=== PATIENT | female | born 2005 | race African-American/Black ===

== ENCOUNTER 2024-01-09 19:35 | Inpatient (IN) | payer BC, SELFPAY ==
--- NOTE | 2024-01-09 23:04 | PC.ADMIT ---
Pt? is a 18 y/o F with reported history of major depressive disorder with psychotic features,dissociative disorder presenting to [facility] ED requesting crisis. Patient states she spoke with her mother,and mother told her you need to get help . Patient stated to her nurse that she can no longer take careof herself . When asked if she is having thoughts of self-harm, the patient pauses and then responds no.History on arrival was extremely limited as patient is not wanting to engage in conversation. Sheindicates I do not want to talk right now . Pt is enrolled in [employer], course of study psychology so I can figure out how people work . Per report Pt has a dorm room at the college but often stays with father. Prior medication trials include zyprexa (reports of weight gain), prozac and risperidone Previous reports of family history of schizophrenia, schizoaffective disorder and Bipolar Disorder Prior reports of self-harming behaviors including: cutting and suicidal attempt- intentional overdose on Nyquil at age 12.?
--- NOTE | 2024-01-09 23:28 | PCS.ADM ---
Pt? is a 18 y/o F with reported history of major depressive disorder with psychotic features, dissociative disorder presenting to [facility] ED requesting crisis. Patient states she spoke with her mother, and mother told her you need to get help . Patient stated to her nurse that she can no longer take care of herself . When asked if she is having thoughts of self-harm, the patient pauses and then responds no. History on arrival was extremely limited as patient is not wanting to engage in conversation. She indicates I do not want to talk right now . Pt is enrolled in [employer], course of study psychology so I can figure out how people work . Per report Pt has a dorm room at the college but often stays with father. Prior medication trials include zyprexa (reports of weight gain), prozac and risperidone Previous reports of family history of schizophrenia, schizoaffective disorder and Bipolar Disorder. Prior reports of self-harming behaviors including: cutting and suicidal attempt- intentional overdose on Nyquil at age 12.
[2024-01-10 08:01] VITALS: BP 105/64; PULSE 79; RESP 18; TEMP 36.3; O2SAT 99
[2024-01-10 08:48] LABS: MANUAL DIFF FLAG NO
[2024-01-10 08:52] LABS: Basophils Absolute Auto 0.1 X10*3/uL (0.0-0.2); Basophils Percent Auto 0.8 % (0-2); Eosinophils Absolute Auto 0.1 X10*3/uL (0.0-0.4); Eosinophils Percent Auto 1.5 % (0-4); Hematocrit 43.8 % (37.0-47.0); Hemoglobin 14.5 g/dl (12.0-16.0); Imm Gran Abs Auto 0.02 X10*3/uL (0.00-0.03); Imm Gran Pct Auto 0.3 % (0.0-0.4); Lymphocytes Absolute Auto 2.5 X10*3/uL (1.2-4.9); Lymphocytes Percent Auto 34.1 % (20-40); Mean Corpuscular HGB Conc 33.1 g/dl (31.0-35.0); Mean Corpuscular Hemoglobin 27.7 pg (27.0-33.0); Mean Corpuscular Volume 83.7 fL (80.0-98.0); Mean Platelet Volume 9.4 fL (9.4-12.3); Monocytes Absolute Auto 0.5 X10*3/uL (0.1-1.2); Monocytes Percent Auto 7.1 % (2-11); Neutrophils Absolute Auto 4.1 x10*3/uL (2.0-8.3); Neutrophils Percent Auto 56.2 % (45-73); Platelet Count 237 X10*3/uL (160-400); Red Blood Count 5.23 X10*6/uL (4.20-5.50); Red Cell Distribution Width 13.5 % (11.0-16.0); White Blood Count 7.3 X10*3/uL (4.8-10.8)
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
[2024-01-10 09:04] LABS: Estimated Average Glucose 103 mg/dL; Hemoglobin A1c % 5.2 % (<6.0)
[2024-01-10 09:16] LABS: Alanine Aminotransferase 12 U/L (0-31); Albumin Level 4.6 g/dL (3.5-5.0); Alkaline Phosphatase 68 U/L (39-117); Anion Gap 13 (12-20); Aspartate Amino Transferase 13 U/L (5-31); Bilirubin Direct 0.4 mg/dL (0.0-0.5); Bilirubin Total 1.2 mg/dL (0.0-1.0); Blood Urea Nitrogen 11 mg/dL (9-16); Calcium 10.6 mg/dL (8.4-10.2); Carbon Dioxide 28 mmol/L (22-29); Chloride 104 mmol/L (96-108); Cholesterol 151 mg/dL (<200); Estimated Glomerular Filt Rate > 60; Glucose Fasting 91 mg/dL (60-99); HDL Cholesterol 62 mg/dL (>40); LDL Cholesterol Calculated 78 mg/dL (<100); Potassium 4.3 mmol/L (3.3-5.1); Sodium 141 mmol/L (135-145); Total Protein 7.8 g/dL (6.5-8.0); Triglycerides 57 mg/dL (<150)
[2024-01-10 09:30] LABS: Free T4 (Free Thyroxine) 1.12 ng/dL (0.71-1.85)
[2024-01-10 09:40] LABS: Folate 7.2 ng/mL (> or = 4.0); Vitamin B12 676 pg/mL (200-900)
[2024-01-10 18:00] VITALS: BP 104/62; PULSE 74; RESP 16; TEMP 36.2; O2SAT 100
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
[2024-01-11 08:22] VITALS: BP 121/62; PULSE 96; RESP 18; TEMP 36.6; O2SAT 99
--- NOTE | 2024-01-11 08:47 | P.PNPSI_ITS ---
Subjective Subjective Date of Service: 01/11/24 Reason For Visit: Depression Diagnostics Vital Signs (24Hr): Vital Signs - 24 hr 01/10/24 18:00 01/11/24 08:22 Temperature 97.2 F 98 F Pulse Rate 74 96 Respiratory Rate 16 18 Blood Pressure 104/62 121/62 Pulse Oximetry 100 99 Oxygen Delivery Method Room Air Room Air Labs 01/10/24 08:39 01/10/24 08:39 Labs: Laboratory Results - last 48 hr 01/10/24 08:39 WBC 7.3 RBC 5.23 Hgb 14.5 Hct 43.8 MCV 83.7 MCH 27.7 MCHC 33.1 RDW 13.5 Plt Count 237 MPV 9.4 Immature Gran % (Auto) 0.3 Neut % (Auto) 56.2 Lymph % (Auto) 34.1 [place] % (Auto) 7.1 Eos % (Auto) 1.5 Baso % (Auto) 0.8 Lymph # (Auto) 2.5 [place] # (Auto) 0.5 Eos # (Auto) 0.1 Baso # (Auto) 0.1 Abs Immat Gran (auto) 0.02 Absolute Neuts (auto) 4.1 Absolute Nucleated RBC 0.000 Nucleated RBC % (auto) 0.0 Sodium 141 Potassium 4.3 Chloride 104 Carbon Dioxide 28 Anion Gap 13 BUN 11 Creatinine 0.83 Estim Creat Clear Calc TNP Estimated GFR > 60 Fasting Glucose 91 Estimat Average Glucose 103 Hemoglobin A1c % 5.2 Calcium 10.6 H Total Bilirubin 1.2 H Direct Bilirubin 0.4 AST 13 ALT 12 Alkaline Phosphatase 68 Total Protein 7.8 Albumin 4.6 Triglycerides 57 Cholesterol 151 LDL Cholesterol, Calc 78 HDL Cholesterol 62 Vitamin B12 676 Folate 7.2 TSH 0.40 Free T4 1.12 Medications Medications Current Medications Acetaminophen (Acetaminophen 325 Mg Tablet) 650 mg PO Q6H PRN PRN Reason: Headache/Pain Mild Scale (1-3) Al Hydroxide/Mg Hydroxide (Magnesium Hydrox/Alum Hydrox 30 Ml Oral.Susp) 30 ml PO Q6H PRN PRN Reason: Heartburn/Nausea Calcium Carbonate (Calcium Carbonate 750 Mg Tab.Chew) 750 mg PO Q4H PRN PRN Reason: Heartburn Hydroxyzine HCl (Hydroxyzine Hcl 25 Mg Tablet) 25 mg PO Q6H PRN PRN Reason: Anxiety Magnesium Hydroxide (Milk Of Magnesia 30 Ml Oral.Susp) 30 ml PO DAILY PRN PRN Reason: Constipation Nicotine Polacrilex (Nicotine Polacrilex 2 Mg Gum) 4 mg BUCCAL Q2H PRN PRN Reason: Nicotine Cravings Trazodone HCl (Trazodone Hcl 50 Mg Tablet) 50 mg PO BEDTIME MRX1 PRN PRN Reason: Insomnia Allergies Allergies Allergy/AdvReac Type Severity Reaction Status Date / Time Unable to Assess Allergy Verified 01/09/24 20:10 Assessment & Plan Assessment & Plan (1) Medical clearance for psychiatric admission: Status: Acute Code(s): Z00.8 - Encounter for other general examination Plan Pt is a 18-year-old female with a PMH significant for?childhood asthma, MDD with psychotic features, and dissociative disorder who is admitted to [facility] psychiatry unit for increasing depression and inability to take care of self in the community. Medical consult for admission H&P. Mood disorder Plan as per psychiatry Chest pain Intermittent, substernal, often occurs postprandial or after lying flat More likely GERD/acid reflux, less likely ACS/CAD given age Will add TUMS prn to pt's meds If symptoms return and not alleviated by TUMS can get EKG and/or trial H2 katharina or PPI Pt otherwise states she has no acute medical issues or chronic medical conditions. Thank you for allowing us to participate in the care of this patient. Signing off at this time. Please re-consult if any acute complaints or issues arise. Time Spent With Patient Time: Total time managing care of this patient today ____ minutes.
--- NOTE | 2024-01-11 10:18 | HO.PSYCHPN ---
Subjective Subjective Date of Service: 01/11/24 Reason For Visit: Depression Subjective Notes: Conditional Voluntary Interim History: Patient was seen and discussed in rounds today. Records and plans were reviewed. She continues to be guarded, visible. Not taking any medications and I talked to her at length about wanting to reconsider and we will discuss it again tomorrow. I also encouraged her to think about seeing a therapist after leaving here and she will consider that. She does want social work to contact her college about her status and she will discuss that with the social service technician. Review of Systems Review of Systems Yes all other systems are reviewed and are negative Mental Status Exam Mental Status Exam Narrative: In today's visit she is alert, oriented and pleasant. Normal speech. Little eye contact. Affect is appropriate and subdued. No SI. Moderate dysphoria to depression present. No signs of psychosis. Cognitively intact. Judgment is intact Diagnostics Vital Signs (24Hr): Vital Signs - 24 hr 01/10/24 18:00 01/11/24 08:22 Temperature 97.2 F 98 F Pulse Rate 74 96 Respiratory Rate 16 18 Blood Pressure 104/62 121/62 Pulse Oximetry 100 99 Oxygen Delivery Method Room Air Room Air Labs 01/10/24 08:39 01/10/24 08:39 Labs: Laboratory Results - last 48 hr 01/10/24 08:39 WBC 7.3 RBC 5.23 Hgb 14.5 Hct 43.8 MCV 83.7 MCH 27.7 MCHC 33.1 RDW 13.5 Plt Count 237 MPV 9.4 Immature Gran % (Auto) 0.3 Neut % (Auto) 56.2 Lymph % (Auto) 34.1 [place] % (Auto) 7.1 Eos % (Auto) 1.5 Baso % (Auto) 0.8 Lymph # (Auto) 2.5 [place] # (Auto) 0.5 Eos # (Auto) 0.1 Baso # (Auto) 0.1 Abs Immat Gran (auto) 0.02 Absolute Neuts (auto) 4.1 Absolute Nucleated RBC 0.000 Nucleated RBC % (auto) 0.0 Sodium 141 Potassium 4.3 Chloride 104 Carbon Dioxide 28 Anion Gap 13 BUN 11 Creatinine 0.83 Estim Creat Clear Calc TNP Estimated GFR > 60 Fasting Glucose 91 Estimat Average Glucose 103 Hemoglobin A1c % 5.2 Calcium 10.6 H Total Bilirubin 1.2 H Direct Bilirubin 0.4 AST 13 ALT 12 Alkaline Phosphatase 68 Total Protein 7.8 Albumin 4.6 Triglycerides 57 Cholesterol 151 LDL Cholesterol, Calc 78 HDL Cholesterol 62 Vitamin B12 676 Folate 7.2 TSH 0.40 Free T4 1.12 Medications Medications Current Medications Acetaminophen (Acetaminophen 325 Mg Tablet) 650 mg PO Q6H PRN PRN Reason: Headache/Pain Mild Scale (1-3) Al Hydroxide/Mg Hydroxide (Magnesium Hydrox/Alum Hydrox 30 Ml Oral.Susp) 30 ml PO Q6H PRN PRN Reason: Heartburn/Nausea Calcium Carbonate (Calcium Carbonate 750 Mg Tab.Chew) 750 mg PO Q4H PRN PRN Reason: Heartburn Hydroxyzine HCl (Hydroxyzine Hcl 25 Mg Tablet) 25 mg PO Q6H PRN PRN Reason: Anxiety Magnesium Hydroxide (Milk Of Magnesia 30 Ml Oral.Susp) 30 ml PO DAILY PRN PRN Reason: Constipation Nicotine Polacrilex (Nicotine Polacrilex 2 Mg Gum) 4 mg BUCCAL Q2H PRN PRN Reason: Nicotine Cravings Trazodone HCl (Trazodone Hcl 50 Mg Tablet) 50 mg PO BEDTIME MRX1 PRN PRN Reason: Insomnia Allergies Allergies Allergy/AdvReac Type Severity Reaction Status Date / Time Unable to Assess Allergy Verified 01/09/24 20:10 Assessment & Plan Assessment & Plan (1) Medical clearance for psychiatric admission: Status: Acute Code(s): Z00.8 - Encounter for other general examination Plan 01/11: Continue current regimen and plans Patient educated on: medication risk/benefits Reason for continued inpatient stay Substantial Risk for: med/psych decompensation Time Spent With Patient Time: Total time managing care of this patient today ____ minutes.
[2024-01-11 21:45] VITALS: BP 119/77; PULSE 85; RESP 18; TEMP 36.4; O2SAT 99
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
[2024-01-12 18:00] VITALS: BP 116/70; PULSE 71; TEMP 36.2
[2024-01-13 11:00] VITALS: RESP 16
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
[2024-01-13 19:15] VITALS: BP 118/55; PULSE 82; TEMP 36.4; O2SAT 98
--- NOTE | 2024-01-13 22:07 | ECG_ITS ---
Test Reason : 07/04 chest pain Blood Pressure : / mmHG Vent. Rate : 060 BPM Atrial Rate : 060 BPM P-R Int : 146 ms QRS Dur : 084 ms QT Int : 440 ms P-R-T Axes : 028 054 036 degrees QTc Int : 440 ms Normal sinus rhythm Normal ECG No previous ECGs available Referred By: Mary Bosch Electronically Signed By:YOSSI RUBI MD
[2024-01-14 12:10] VITALS: BP 109/78; PULSE 75; RESP 18; TEMP 36.8; O2SAT 99
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
[2024-01-14 18:00] VITALS: BP 101/69; PULSE 75; RESP 18; TEMP 36.2; O2SAT 99
[2024-01-15 08:12] VITALS: BP 123/56; PULSE 65; RESP 16; TEMP 36.4; O2SAT 100
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
[2024-01-16 08:00] VITALS: BP 119/73; PULSE 62; RESP 16; TEMP 36.3; O2SAT 62
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
[2024-01-16] MEDS: Magnesium Hydrox/Alum Hydrox 30 ML ORAL.SUSP PO (17:37)
[2024-01-16 18:00] VITALS: BP 122/84; PULSE 68; TEMP 36.6; O2SAT 99
[2024-01-17 08:10] VITALS: BP 112/71; PULSE 59; RESP 16; TEMP 36.3; O2SAT 100
--- NOTE | 2024-01-17 08:55 | P.DS_ITS ---
DS: Providers Provider Date of Service: 01/17/24 Date of admission: 01/09/24 19:35 Date of discharge: 01/17/24 Primary care physician: Regine Hussein MD Admitting clinician: Scooter Cabrera Attending physician on admission: Scooter Cabrera Consults: 01/09/24 20:10 Consult to Hospitalist Routine Comment: Consulting Provider: Hospitalist Reason For Exam: OSH admission Attending physician on discharge: Demar Johnson Discharging clinician: Meghan Hutchison DS: Diagnosis Discharge Diagnosis (1) MDD (major depressive disorder), recurrent episode, severe: Status: Acute (2) PTSD (post-traumatic stress disorder): Status: Acute DS: Medications Discharge Medications Home Medications: No Meds at this time. Mental Status Exam Mental Status Exam Patient Appearance: Fatigued Patient Orientation: Person, Place, Time and Situation Level of Consciousness: Alert Patient Behavior: Talkative, Cooperative and Anxious Mood Description: Apprehensive Affect Description: Flat and Apprehensive Patient Cognition Impaired: No Ability to Follow Directions: Good Speech Pattern: Spontaneous Speech and Soft-Spoken Memory Description: Intact Hallucinations: None Delusions: Not Present Thought Process: Rumination Thought Content: positive for Perseveration and positive for Suicidal Ideation (denies) Depressive Symptoms: Increased Anxiety Judgement: Good Data Data Completed and Pending Completed studies during hospitalization [Text1]: 01/10/24 08:39 Sodium 141 Potassium 4.3 Chloride 104 Carbon Dioxide 28 Anion Gap 13 BUN 11 Creatinine 0.83 Estim Creat Clear Calc TNP Estimated GFR > 60 Fasting Glucose 91 Estimat Average Glucose 103 Hemoglobin A1c % 5.2 Calcium 10.6 H Total Bilirubin 1.2 H Direct Bilirubin 0.4 AST 13 ALT 12 Alkaline Phosphatase 68 Total Protein 7.8 Albumin 4.6 Triglycerides 57 Cholesterol 151 LDL Cholesterol, Calc 78 HDL Cholesterol 62 Vitamin B12 676 Folate 7.2 TSH 0.40 Free T4 1.12 DS: Summary Hospital Course Hospital Course: Admission to adult psychiatry for exacerbation of symptoms of major depression, PTSD, psychosocial stress. Mother encouraged pt to present for treatment. Pt reports hx of depression but manages this with structure, attending college, and working. It appears she experienced a dissociative episode prior to admission and wanted to take a break from the stress she was experiencing. Pt was placed on a Section 12B. She declined to participate in treatment on admission, declining medication and groups. Collateral contact was gathered from parents. Mother, an FINANCIAL SERVICE REP and therapist, reported a concerning history which precipitated filing of a Section VII and father, whom she has lived with since age 8, who has had custody and knows pt well gave a different perspective on a delicate family dynamic and stressors the patient and family have managed. Both pt and father asked for pt to discharge to return to her life/work/studies. Father is available to pt, as is paternal grandmother. Pt is more of a support to her mother, however, is aware of how much mother loves and cares for her and sees her as a resource and support as well. Pt plans to return home, return to her dorm, re-establish classes, work and will attend [facility] to begin psychotherapy. She is aware that the team is here for her as needed and will call and or return if needed. Status at Discharge Functional status at discharge: independent ambulation Overall status at discharge: patient is progressing back to baseline Time Spent with Patient Time attestation: Total time managing care of this patient today ____ minutes. Discharge Plan Discharge Anticipated Discharge Date/Time: 01/17/24 12:00 Patient Disposition: Home, Self-Care Discharge Diagnosis: PTSD Major Depression, Recurrent Referrals: [facility] ([facility]) Katie Redmond [Other] - 01/27/24 10:00 am (Initial Diagnostic evaluation for Therapy Appointment in person at [facility] in [place]) [facility]: [facility] [Other] - 1 Week (Information for [facility] at [facility] You may self present or call to schedule and appointment for counseling support.) Regine Hussein MD [Primary Care Provider] - 01/27/24 1:00 pm (in office) Discharge Orders: Discharge Order (Routine); Ordered 01/17/24 Ordered By: Meghan Hutchison Diet: Advance to usual diet Activity on Discharge: As tolerated Stand Alone Forms: Patient Portal Discharge page, Community Support Care Plan Goals: Mood and Behavioral Stabilization Health Concerns: Mood and Behavioral Stabilization Plan of Treatment: Attend scheduled appointments Call/Return if needed Assessment: Pt interviewed prior to discharge and found to be fully oriented and without SI/HI. Pt has insight and demonstrates good judgment in terms of wanting to pursue treatment. Pt is not in imminent risk of harm to self or others and has a safety plan that includes presenting to the closest ER or calling 911 if feeling unsafe. Pt has been observed closely by nursing and unit staff throughout admission. Pt has not engaged in any behaviors that suggest dangerousness to self or others and has demonstrated appropriate behaviors and impulse control. Discharge Date/Time: 01/17/24 11:55
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
== END 2024-01-17 11:55 | disposition home or self-care (01) | DRG 751 ==
PROVIDERS: Psychiatry & Neurology Psychiatry; Admitting Provider Psychiatry & Neurology Psychiatry; PCP Pediatrics Adolescent Medicine; Visit Provider Psychiatry & Neurology Psychiatry
DX: F33.2 Major depressive disorder, recurrent severe without psychotic features (principal); F17.210 Nicotine dependence, cigarettes, uncomplicated; F43.10 Post-traumatic stress disorder, unspecified; K21.9 Gastro-esophageal reflux disease without esophagitis; Z71.6 Tobacco abuse counseling
CPT/HCPCS: 36415; 80053; 80061; 80076; 82607; 82746; 83036; 84439; 84443; 85025; 93005

== ENCOUNTER 2024-01-09 19:35 | Outpatient (BNV) | payer BC, SELFPAY | END 2024-01-13 22:07 | PROVIDERS: Admitting Provider Psychiatry & Neurology Psychiatry; PCP Pediatrics Adolescent Medicine; Visit Provider Internal Medicine Cardiovascular Disease | DX: R07.9 Chest pain, unspecified (principal) | CPT/HCPCS: 93010 ==

== ENCOUNTER → 2024-01-09 19:35 | Outpatient (BNV) | payer BC, SELFPAY | PROVIDERS: Admitting Provider Psychiatry & Neurology Psychiatry; PCP Pediatrics Adolescent Medicine; Visit Provider Student in an Organized Health Care Education/Training Program | DX: Z02.2 Encounter for examination for admission to residential institution (principal) | CPT/HCPCS: 99429 ==

== ENCOUNTER → 2024-01-09 19:35 | Outpatient (BNV) | payer BC, SELFPAY | PROVIDERS: Admitting Provider Psychiatry & Neurology Psychiatry; PCP Pediatrics Adolescent Medicine; Visit Provider Psychiatry & Neurology Psychiatry | DX: F33.2 Major depressive disorder, recurrent severe without psychotic features (principal); F43.11 Post-traumatic stress disorder, acute | CPT/HCPCS: 99222; 99231; 99232; 99238; 99499 ==